=== PATIENT | female | born 1965 | race Two or more races ===

== ENCOUNTER 2022-01-05 18:49 | Inpatient (IN) | payer MEDICAID, OTHER ==
[~2022-01-05] VITALS: Ht 152.4 cm; Wt 72.4 kg
[2022-01-05 20:23] LABS: Basophils # (auto) 0 10 ^3/uL (0-0.2); Basophils % (auto) 0.5 % (0.0-2.0); Eosinophils # (auto) 0.2 10 ^3/uL (0-0.8); Eosinophils % (auto) 2.8 % (0.0-7.0); Hematocrit 41.8 % (36.0-46.0); Hemoglobin 14.2 g/dL (12.2-16.2); Lymphocytes # (auto) 2.1 10 ^3/uL (0.4-5.4); Lymphocytes % (auto) 32.2 % (10.0-50.0); Mean Corpuscular Hemoglobin 27.7 pg (28.0-32.0); Mean Corpuscular Volume 81.4 fL (80.0-100.0); Monocytes # (auto) 0.6 10 ^3/uL (0-1.3); Monocytes % (auto) 9.2 % (0.0-12.0); Neutrophils # (auto) 3.6 10 ^3/uL (1.6-8.6); Neutrophils % (auto) 55.3 % (37.0-80.0); Nucleated Red Blood Cells % 0.3 %; Red Blood Cells 5.14 10^6/uL (4.0-5.20); White Blood Cell 6.5 10^3/uL (4.4-10.8)
[2022-01-05 20:36] LABS: Albumin 3.9 g/dL (3.4-5.0); BUN/Creatinine Ratio 20.3; Calcium 9.5 mg/dL (8.5-10.1); Potassium 3.9 mmol/L (3.5-5.1)
[2022-01-05 20:39] LABS: Bilirubin, Total 0.4 mg/dL (0.2-1.0)
[2022-01-05] MEDS ORDERED: IOHEXOL 300 MG/ML 100ML BOTTLE IJ ONE (22:32)
[2022-01-05] MEDS ORDERED: SODIUM CHLORIDE 0.9% 1,000 ML IV ONE (23:30)
[2022-01-05] MEDS ORDERED: PIPERACILLIN-TAZOB 3.375GM 100 ML IV ONE (23:30)
[2022-01-05] MEDS ORDERED: fentaNYL CITRATE 100 MCG/2 ML VL IV ONE (23:30)
[2022-01-06] MEDS ORDERED: metroNIDAZOLE 500MG/100ML 100 ML IV ONE
[2022-01-06] MEDS ORDERED: MORPHINE SULFATE INJECTION 2 MG/ML SYRG IV PRN
[2022-01-06] MEDS ORDERED: LACTATED RINGER'S 1,000 ML IV SCH (00:30)
[2022-01-06] MEDS ORDERED: hydrALAZINE HCL 20 MG/ML VL IV PRN (00:30)
[2022-01-06 02:37] LABS: INR 0.99 (0.9-1.15)
[2022-01-06] MEDS ORDERED: metroNIDAZOLE 500MG/100ML 100 ML IV SCH (06:00)
[2022-01-06] MEDS ORDERED: cefTRIAXone 1GM/50ML D5W 50 ML IV ONE (10:15)
[2022-01-06] MEDS ORDERED: FAMOTIDINE (10MG/ML) 2ML VL IV ONE (10:15)
[2022-01-06] MEDS: LACTATED RINGER'S 1,000 ML IV SCH ×3 (10:21→20:25)
[2022-01-06 13:00] VITALS: BP 137/67
[2022-01-06] MEDS: metroNIDAZOLE 500MG/100ML 100 ML IV SCH ×2 (16:27→22:37)
[2022-01-06 17:00] VITALS: BP 108/79
[2022-01-06 22:00] VITALS: BP 122/89
[2022-01-06] MEDS: FAMOTIDINE (10MG/ML) 2ML VL IV SCH (22:39)
[2022-01-07] MEDS: LACTATED RINGER'S 1,000 ML IV SCH (03:08)
[2022-01-07 05:00] VITALS: BP 127/57
[2022-01-07] MEDS: metroNIDAZOLE 500MG/100ML 100 ML IV SCH ×3 (05:50→22:31)
[2022-01-07] MEDS ORDERED: BUPIVACAINE W/ EPINEPH 0.25% INJ 50ML MDV ONE (07:31)
[2022-01-07] MEDS ORDERED: ceFAZolin 1GM/50ML 100 ML IV ONE (08:47)
[2022-01-07] MEDS ORDERED: SUCCINYLCHOLINE CHLORIDE 20 MG/ML 10ML VIAL IV ONE (08:51)
[2022-01-07] MEDS ORDERED: MIDAZOLAM HCL 2MG/2ML 2ml VIAL (1mg/ml) ONE ×2 (09:03→10:41)
[2022-01-07] MEDS ORDERED: fentaNYL CITRATE 100 MCG/2 ML VL ONE ×2 (09:03→10:41)
[2022-01-07] MEDS ORDERED: MEPERIDINE HCL (25 MG/ML) 1ML VIAL ONE ×2 (09:04→10:41)
[2022-01-07] MEDS ORDERED: ONDANSETRON HCL 4 MG/2 ML VIAL IV PRN ×2 (09:30→20:00)
[2022-01-07] MEDS ORDERED: MORPHINE SULFATE 4 MG/ML SYR/VIAL IV PRN (09:30)
[2022-01-07] MEDS ORDERED: MIDAZOLAM HCL 2MG/2ML 2ml VIAL (1mg/ml) IV PRN (09:30)
[2022-01-07] MEDS ORDERED: ePHEDrine SULFATE 50 MG/ML AMP IV PRN (09:30)
[2022-01-07] MEDS ORDERED: LABETALOL HCL 5 MG/ML 4ML SYRINGE IV PRN (09:30)
[2022-01-07] MEDS ORDERED: HYDROmorphone HCL 2 MG/ML VL/or syr IV PRN ×2 (09:30→10:15)
[2022-01-07] MEDS ORDERED: DexAMETHasone SOD PHOS 10MG/1ML VIAL INJ ONE ×2 (10:12→10:45)
[2022-01-07] MEDS ORDERED: PROPOFOL 10 MG/ML 20 ML IV ONE ×2 (10:12→10:45)
[2022-01-07] MEDS ORDERED: SUGAMMADEX 200mg/2ml Vial (100MG/ML) IV ONE (12:30)
[2022-01-07] MEDS: FAMOTIDINE (10MG/ML) 2ML VL IV SCH ×2 (12:47→22:31)
[2022-01-07] MEDS: cefTRIAXone 1GM/50ML D5W 50 ML IV SCH (12:47)
[2022-01-07 13:00] VITALS: BP 109/59
[2022-01-07 17:00] VITALS: BP 136/76
[2022-01-07 22:00] VITALS: BP 104/58
[2022-01-08] MEDS: LACTATED RINGER'S 1,000 ML IV SCH ×2 (01:39→10:59)
[2022-01-08] MEDS: ACETAMINOPHEN/CODEINE#3 (300/30mg) TAB PO PRN ×4 (04:59→22:42)
[2022-01-08 05:00] VITALS: BP 129/64
[2022-01-08] MEDS: metroNIDAZOLE 500MG/100ML 100 ML IV SCH ×3 (06:05→22:30)
[2022-01-08 09:00] VITALS: BP 111/62
[2022-01-08] MEDS: FAMOTIDINE (10MG/ML) 2ML VL IV SCH ×2 (09:05→22:31)
[2022-01-08] MEDS: cefTRIAXone 1GM/50ML D5W 50 ML IV SCH (09:05)
[2022-01-08 13:00] VITALS: BP 134/70
[2022-01-08 17:00] VITALS: BP 136/57
[2022-01-08 22:00] VITALS: BP 125/65
[2022-01-09] MEDS: LACTATED RINGER'S 1,000 ML IV SCH ×2 (02:10→10:00)
[2022-01-09 05:00] VITALS: BP 127/69
[2022-01-09] MEDS: metroNIDAZOLE 500MG/100ML 100 ML IV SCH ×2 (06:27→14:00)
[2022-01-09] MEDS: ACETAMINOPHEN/CODEINE#3 (300/30mg) TAB PO PRN (06:29)
[2022-01-09] MEDS: cefTRIAXone 1GM/50ML D5W 50 ML IV SCH (08:30)
[2022-01-09] MEDS: FAMOTIDINE (10MG/ML) 2ML VL IV SCH (08:59)
[2022-01-09] MEDS ORDERED: HYDR-4902 PO (09:38)
[2022-01-09] MEDS ORDERED: METR500T PO (09:38)
[2022-01-09] MEDS ORDERED: LEVO500T31 PO (09:38)
== END 2022-01-09 14:08 | disposition home or self-care (01) | DRG 234 ==
LOC: EDBD 18:52 → ER 18:52 → OVERFLOW 23:53 → ER 01-06 00:06 → EAST 01-06 12:28
PROVIDERS: ADMIT Registered Nurse; ATTEND Family Medicine
PROC: 0WJG4ZZ Inspection of Peritoneal Cavity, Percutaneous Endoscopic Approach (ICD-10-PCS; 2022-01-07)
PROC: 0DTJ0ZZ Resection of Appendix, Open Approach (ICD-10-PCS; principal; 2022-01-07 09:08)
DX: K35.80 Unspecified acute appendicitis (principal); E86.0 Dehydration; Z20.822 Contact with and (suspected) exposure to COVID-19; Z68.29 Body mass index [BMI] 29.0-29.9, adult; Z53.31 Laparoscopic surgical procedure converted to open procedure
CPT/HCPCS: 36415; 71045; 74177; 76705; 80053; 83605; 83690; 85025; 85610; 86850; 86900; 86901; 87040; 87070; 87075; 87205; 96361; 96365; 96375; 97163; G0378; J0330; J0690; J0696; J1100; J2250; J2405; J2704; J3490